=== PATIENT | male | born 1995 | race Caucasian/White ===

== ENCOUNTER 2021-09-23 13:36 | Emergency (ER) | payer MEDICARE, MEDICAID ==
[~2021-09-23] VITALS: Ht 160 cm; Wt 52.7 kg
[2021-09-23 13:43] VITALS: BP 134/84
[2021-09-23] MEDS ORDERED: LIDOcaine 1% 30ml preserv. free vial IJ STA (13:51)
[2021-09-23] MEDS ORDERED: AMOX-100 PO (14:28)
[2021-09-23] MEDS ORDERED: amoxicillin 250mg capsule PO ONE (14:50)
== END 2021-09-23 15:01 | disposition home or self-care (01) ==
LOC: ER 13:40
DX: L60.0 Ingrowing nail (principal); M79.674 Pain in right toe(s); Z56.0 Unemployment, unspecified; Z79.2 Long term (current) use of antibiotics
CPT/HCPCS: 99283